=== PATIENT | female | born 1955 | race Caucasian/White ===

== ENCOUNTER 2018-06-08 22:15 | Emergency (ER) | payer MEDICAID, OTHER ==
[~2018-06-08] VITALS: Ht 157.5 cm; Wt 62.0 kg
[~2018-06-08 22:15] MED LIST: POTA20TA19 PO
[2018-06-08 22:22] VITALS: BP 127/74
[2018-06-08] MEDS ORDERED: diphenhydrAMINE 25mg capsule PO ONE (23:10)
[2018-06-08] MEDS ORDERED: predniSONE 20 mg tablet PO ONE (23:10)
== END 2018-06-08 23:29 | disposition home or self-care (01) ==
LOC: ER 22:16
DX: T63.441A Toxic effect of venom of bees, accidental (unintentional), initial encounter (principal); Z88.8 Allergy status to other drugs, medicaments and biological substances; Z79.899 Other long term (current) drug therapy; Y92.89 Other specified places as the place of occurrence of the external cause
CPT/HCPCS: 99283; J7512; Q0163

== ENCOUNTER 2021-04-01 12:10 | Emergency (ER) | payer MEDICARE ==
[~2021-04-01] VITALS: Ht 157.5 cm; Wt 59.1 kg
[2021-04-01 13:03] VITALS: BP 135/72
[2021-04-01] MEDS ORDERED: ciprofloxacin 0.3% 2.5ml ophthalmic solution RIGHTEYE ONE (15:10)
== END 2021-04-01 15:29 | disposition home or self-care (01) ==
LOC: ER 12:10
DX: H10.9 Unspecified conjunctivitis (principal); Z98.890 Other specified postprocedural states; Z88.8 Allergy status to other drugs, medicaments and biological substances; Z79.899 Other long term (current) drug therapy
CPT/HCPCS: 99282; 99283